=== PATIENT | male | born 1965 | race African-American/Black ===

== ENCOUNTER 2018-10-22 08:51 | Emergency (ER) | payer SELFPAY ==
[~2018-10-22] VITALS: Ht 172.7 cm; Wt 113.6 kg
[2018-10-22 09:22] VITALS: BP 164/63
== END 2018-10-22 12:01 | disposition left against medical advice (07) ==
LOC: EMS 08:52
DX: S60.445A External constriction of left ring finger, initial encounter (principal); W49.04XA Ring or other jewelry causing external constriction, initial encounter; Y93.89 Activity, other specified; Y92.89 Other specified places as the place of occurrence of the external cause; Y99.8 Other external cause status